=== PATIENT | female | born 1975 | race Caucasian/White ===

== ENCOUNTER 2023-11-13 16:04 | Emergency (ER) | payer SELFPAY ==
[2023-11-13 16:24] VITALS: BP 121/77; PULSE 74; RESP 18; TEMP 36.7; O2SAT 98
--- NOTE | 2023-11-13 17:22 | XRR_ITS ---
PROCEDURE INFORMATION: Exam: XR Left Foot Exam date and time: 11/13/2023 5:36 PM Age: 48 years old Clinical indication: Ankle and foot; Left; Patient HX: Lt foot/ankle pain post fall down stairs TECHNIQUE: Imaging protocol: Radiologic exam of the left foot. Views: 3 or more views. COMPARISON: CR XR ankle LT min 3V* [id number] 11/13/2023 5:36 PM FINDINGS: Bones/joints: Small ossific density just dorsal to the distal talus likely avulsion fracture arising from the dorsal talus. No other evidence of acute fracture or dislocation. Small well corticated fragment just lateral to the lateral tarsal bones, likely congenital os or sequela of prior trauma. Soft tissues: Mild dorsal soft tissue swelling. XR/XR foot LT min 3V* [id number] IMPRESSION: Small ossific density just dorsal to the distal talus likely avulsion fracture arising from the dorsal talus. Correlate with physical exam.
--- NOTE | 2023-11-13 17:22 | XRR_ITS ---
PROCEDURE INFORMATION: Exam: XR Left Ankle Exam date and time: 11/13/2023 5:36 PM Age: 48 years old Clinical indication: Ankle and foot; Left; Patient HX: Lt foot/ankle pain post fall down stairs TECHNIQUE: Imaging protocol: Radiologic exam of the left ankle. Views: 3 or more views. COMPARISON: CR XR foot LT min 3V* [id number] 11/13/2023 5:36 PM FINDINGS: Bones/joints: Well corticated osseous fragment adjacent to the medial malleolus likely sequela of prior trauma. Small osseous fragment just dorsal to the distal talus likely reflecting acute avulsion fracture. No other definitive evidence of acute fracture or dislocation. Soft tissues: Mild dorsal soft tissue swelling. XR/XR ankle LT min 3V* [id number] IMPRESSION: Small osseous fragment just dorsal to the distal talus likely reflecting acute avulsion fracture. Correlate with physical exam.
--- NOTE | 2023-11-13 18:20 | CTR_ITS ---
PROCEDURE INFORMATION: Exam: CT Head Without Contrast Exam date and time: 11/13/2023 6:23 PM Age: 48 years old Clinical indication: Injury or trauma; Fall; Blunt trauma (contusions or hematomas); Patient HX: Patient fell walking down jehovah's witness steps. C/O generalized GUEVARA. TECHNIQUE: Imaging protocol: Computed tomography of the head without contrast. Radiation optimization: All CT scans at this facility use at least one of these dose optimization techniques: automated exposure control; mA and/or kV adjustment per patient size (includes targeted exams where dose is matched to clinical indication); or iterative reconstruction. COMPARISON: No relevant prior studies available. RADIATION DOSE METRICS: Total DLP (mGy-cm): 1047.68 FINDINGS: Brain: No intracranial hemorrhage. No edema or mass effect. No significant deep white matter abnormality. Cerebral ventricles: Normal ventricles. Paranasal sinuses: The paranasal sinuses are clear. Mastoid air cells: The mastoid air cells are clear. Bones: No acute osseous abnormalities are seen. Soft tissues: The soft tissues are within normal limits. CT/CT head wo con* [id number] IMPRESSION: No acute intracranial pathology.
--- NOTE | 2023-11-13 18:33 | ED_ITS ---
HPI - Fall General: Chief Complaint: Fall Stated Complaint: Fall w/ head injury and left ankle Time Seen by Provider: 11/13/23 18:05 Source: patient Mode of arrival: ambulatory Limitations: no limitations History of Present Illness: 48-year-old female states she had fell d own stairs roughly an hour ago at [employer] [employer]. She she twisted her left ankle as pain to her left foot and ankle states she also hit her head she denies any loss conscious does have a headache states she has some mild pain across her shoulder but states that is very minimal her main pain is in her foot and ankle. She denies any neck pain. Associated symptoms-after fall: Reports headache(s); Denies abdominal pain or neck pain Related Data Home Medications Medication Instructions Recorded Confirmed No Known Home Medications 06/09/20 06/09/20 Allergies Allergy/AdvReac Type Severity Reaction Status Date / Time codeine Allergy vomiting Verified 06/09/20 11:55 morphine Allergy ALGY-Rash Verified 11/13/23 16:31 oxycodone Allergy ALGY-Rash Verified 11/13/23 16:31 Review of Systems Const: Denies: fever(s), chills, body aches or change in appetite ENMT: Denies: throat pain or dental pain Card: Denies: syncope Resp: Denies: dyspnea GI: Denies: abdominal pain, nausea, vomiting or diarrhea Musc: Reports: extremity pain; Denies: neck pain or back pain Skin/Breast: Denies: rash Neuro: Reports: headache(s) PFSH ED PFSH: Medical History Seasonal allergies Social History Smoking and tobacco/nicotine status: never used tobacco/nicotine Alcohol intake: current Alcohol intake frequency: few times a month Substance/Drug Use: never Physical Exam Const: COMMON NORMALS: no acute distress, patient oriented x3 and healthy appearing HENMT: COMMON NORMALS: normocephalic HEAD & SCALP: normocephalic Eye: COMMON NORMALS: Equal, round and reactive pupils present and EOMs intact bilaterally PUPIL: Yes Equal, round and reactive pupils present Neck/C-Spine: COMMON NORMALS: full ROM and supple CERVICAL SPINE: No pain with cervical ROM and No Cervical spine tenderness Chest: COMMONS NORMALS: normal inspection of the chest and normal palpation of entire chest wall Resp: COMMON NORMALS: normal respiratory effort, No retractions, No use of accessory muscles and clear to auscultation bilaterally AUSCULTATION: clear to auscultation bilaterally Cardio: COMMON NORMALS: regular rate, regular rhythm and No murmurs present (Cardio) RATE: regular rate RHYTHM: regular rhythm Extremity: COMMON NORMALS: full ROM NARRATIVE EXTREMITY EXAM: Contusion noted to left lateral foot with tenderness Neuro: COMMON NORMALS: patient oriented x3, moves all extremities and no focal motor deficits Psych: COMMON NORMALS: mental status grossly normal, Normal thought process present and cooperative THOUGHT PROCESS: Normal thought process present Skin: COMMON NORMALS: no rashes or lesions noted and no wounds GENERAL SKIN EXAM: no rashes or lesions noted Course Vital Signs: Vital signs: Vital Signs Temperature 98.1 F 11/13/23 16:24 Pulse Rate 74 11/13/23 16:24 Respiratory Rate 18 11/13/23 16:24 Blood Pressure 121/77 11/13/23 16:24 Pulse Oximetry 98 11/13/23 16:24 Oxygen Delivery Me thod Room Air 11/13/23 16:24 MDM - Fall Medical Decision Making Patient presents with likely avulsion fracture right ankle head CT here is normal no other injuries noted we will place her in a splint she is to be nonweightbearing she is to follow-up with podiatry return if worsening she understands agrees to plan. Medical Records I reviewed the patient's medical records. Lab Data Radiology Impressions Ankle X-Ray 11/13/23 17:22 IMPRESSION: Small osseous fragment just dorsal to the distal talus likely reflecting acute avulsion fracture. Correlate with physical exam. Foot X-Ray 11/13/23 17:22 IMPRESSION: Small ossific density just dorsal to the distal talus likely avulsion fracture arising from the dorsal talus. Correlate with physical exam. Head CT 11/13/23 18:20 IMPRESSION: No acute intracranial pathology. All radiology interpretation(s) finalized by discharge Discharge Plan Discharge Patient Disposition: Home Clinical Impression: Avulsion fracture of left ankle Qualifiers: Encounter type: initial encounter Fracture type: closed Qualified Code(s): S82.892A - Other fracture of left lower leg, initial encounter for closed fracture Condition: Stable Prescriptions: No Action No Known Home Medications Discharge Orders: Discharge ED (Routine); Ordered 11/13/23 Ordered By: Dimas Nelson Referrals: Simeon Alejo DPM [Physician] - 4-7 days Discharge Diet: Advance as tolerated Discharge Activity: Resume usual activity Patient Instructions: Ankle Fracture (ED) Coding Level of Care Code ED [employer] for Leatha Haywood
[2023-11-13 19:35] VITALS: BP 142/100; PULSE 92; O2SAT 98
[2023-11-13 19:51] VITALS: BP 142/100; PULSE 81; O2SAT 95
--- NOTE | 2023-11-14 08:51 | DCPLANNER ---
messaged podiatry for er f/u
== END 2023-11-13 19:54 | disposition home or self-care (01) ==
PROVIDERS: Emergency Provider Emergency Medicine
DX: S82.892A Other fracture of left lower leg, initial encounter for closed fracture (principal); W10.8XXA Fall (on) (from) other stairs and steps, initial encounter; Y92.22 Religious institution as the place of occurrence of the external cause
CPT/HCPCS: 29515; 70450; 73610; 73630; 99284; E0114

== ENCOUNTER → 2024-06-29 08:57 | Outpatient (BNVA) | payer OTHER, SELFPAY | PROVIDERS: PCP Family Medicine; Visit Provider Family Medicine | DX: Z13.6 Encounter for screening for cardiovascular disorders (principal); E66.811 Obesity, class 1 | CPT/HCPCS: 80053; 80061; 83036; 84439; 84443; 85025 ==

== ENCOUNTER → 2024-09-07 08:58 | Outpatient (BNVA) | payer OTHER, SELFPAY | PROVIDERS: PCP Family Medicine; Visit Provider Family Medicine | DX: E03.9 Hypothyroidism, unspecified (principal) | CPT/HCPCS: 84439; 84443 ==